=== PATIENT | female | born 1960 | race Caucasian/White ===

== ENCOUNTER → 2019-08-21 08:12 | Outpatient (CLI) | payer OTHER, SELFPAY | PROVIDERS: Family Provider Family Medicine; PCP Family Medicine; Referring Provider Family Medicine; Visit Provider Family Medicine | DX: I10 Essential (primary) hypertension (principal) | CPT/HCPCS: 36415 ==

== ENCOUNTER → 2020-01-06 10:33 | Outpatient (REF) | payer OTHER, MEDICAID, SELFPAY | LOC: HPRAD 10:33 | PROVIDERS: PCP Family Medicine; Referring Provider Chiropractor; Visit Provider Chiropractor | DX: M99.01 Segmental and somatic dysfunction of cervical region (principal) | CPT/HCPCS: 72040 ==

== ENCOUNTER → 2020-09-14 08:10 | Outpatient (CLI) | payer OTHER, MEDICAID, SELFPAY ==
[2020-09-14 10:46] LABS: ALB/GLOB Ratio 1.1 RATIO (0.9-2.4); AST(SGOT) 15 U/L (15-37); Alanine Aminotransfer ALT/SGPT 22 U/L (13-56); Albumin, Serum 3.7 g/dL (3.2-5.0); Alkaline Phosphatase 69 U/L (45-117); Anion Gap 7 (5-15); BUN 18 mg/dL (7-18); BUN/Creat Ratio 21.4 RATIO (10-20); Calcium,Total 9.2 mg/dL (8.5-10.1); Chloride 101 mmol/L (98-107); Cholesterol 191 mg/dL (200); Creatinine, Serum 0.84 mg/dL (0.55-1.02); EST Glomerular Filtration Rate 74 mL/min (>60); Est Glom Filt Rate - Afr Amer 89 mL/min (>60); Globulin 3.4 g/dL (2.2-4.2); Glucose 88 mg/dL (74-106); High Density Lipoprotein 59 mg/dL; Potassium 3.5 mmol/L (3.5-5.1); Protein, Total 7.1 g/dL (6.4-8.2); Sodium Level 139 mmol/L (136-145); Triglycerides 109 mg/dL; Very Low Density Lipoprotein 22 mg/dL (5-40)
== END ==
PROVIDERS: PCP Family Medicine; Referring Provider Family Medicine; Visit Provider Family Medicine
DX: I10 Essential (primary) hypertension (principal)
CPT/HCPCS: 36415; 80053; 80061

== ENCOUNTER → 2021-09-14 08:51 | Outpatient (CLI) | payer OTHER, MEDICAID, SELFPAY ==
--- NOTE | 2021-09-14 08:56 | CDU_ITS ---
Reason For Study: Transient vision loss Rt. Velocities/BP Lt. Velocities/BP Prox CCA 94.3/25.2 cm/sec. Prox CCA 102.3/28.6 cm/sec. Mid CCA 100.8/34.3 cm/sec. Mid CCA 94.9/29.8 cm/sec. Dist CCA 87.8/26.5 cm/sec. Dist CCA 90/27.4 cm/sec. Prox ICA 82.6/21.3 cm/sec. Prox ICA 103.5/33.5 cm/sec. Mid ICA 93/29.1 cm/sec. Mid ICA 83.9/38.4 cm/sec. Dist ICA 90.4/36.9 cm/sec. Dist ICA 93.7/37.2 cm/sec. Rt. ICA/CCA = 0.99. Lt. ICA/CCA = 1.09. Prox ECA 86.5/13.4 cm/sec. Prox ECA 110.1/24.3 cm/sec. Rt. Vert. 45.6/16.3 cm/sec. Lt. Vert. 54.4/18.8 cm/sec. Right Extracranial There is intimal thickening but no significant atherosclerotic plaque noted in the right common carotid artery. There is intimal thickening but no significant atherosclerotic plaque noted in the right internal carotid artery. There is no significant atherosclerotic plaque noted in the right external carotid artery. Antegrade flow is noted in the right vertebral artery. Left Extracranial There is intimal thickening but no significant atherosclerotic plaque noted in the left common carotid artery. There is intimal thickening but no significant atherosclerotic plaque noted in the left internal carotid artery. There is intimal thickening but no significant atherosclerotic plaque noted in the left external carotid artery. Antegrade flow is noted in the left vertebral artery. Procedure Carotid Duplex 36569. This is a Carotid Duplex examination using B-mode, color flow and specral Doppler. Exam performed in department. VL/Carotid Duplex Ultrasound Interpretation Summary No significant atherosclerotic plaque or stenosis noted in the internal carotid arteries bilaterally. Flow within the vertebral arteries is antegrade bilaterally. Ordering Physician: Sj Rocha Performed By: Judith Henry RVT
== END ==
PROVIDERS: Referring Provider Ophthalmology; Visit Provider Ophthalmology
DX: H53.123 Transient visual loss, bilateral (principal)
CPT/HCPCS: 93880

== ENCOUNTER 2021-11-13 08:58 | Outpatient (CLI) | payer OTHER, MEDICAID, SELFPAY ==
[2021-11-13 11:09] LABS: AST(SGOT) 24 U/L (15-37); Alanine Aminotransfer ALT/SGPT 45 U/L (13-56); Albumin, Serum 3.5 g/dL (3.2-5.0); Alkaline Phosphatase 66 U/L (45-117); Anion Gap 5 (5-15); BUN 16 mg/dL (7-18); BUN/Creat Ratio 22.6 RATIO (10-20); Calcium,Total 9.5 mg/dL (8.5-10.1); Chloride 104 mmol/L (98-107); Cholesterol 193 mg/dL (200); Creatinine, Serum 0.71 mg/dL (0.55-1.02); EST Glomerular Filtration Rate 89 mL/min (>60); Est Glom Filt Rate - Afr Amer 108 mL/min (>60); Globulin 3.5 g/dL (2.2-4.2); Glucose 89 mg/dL (74-106); High Density Lipoprotein 68 mg/dL; Potassium 3.8 mmol/L (3.5-5.1); Sodium Level 141 mmol/L (136-145); Triglycerides 113 mg/dL; Very Low Density Lipoprotein 23 mg/dL (5-40)
== END 2021-11-13 23:59 | disposition short-term general hospital (02) ==
LOC: MFPLAB 09:02
PROVIDERS: Family Medicine; Visit Provider Registered Nurse
DX: I10 Essential (primary) hypertension (principal)
CPT/HCPCS: 36415; 80053; 80061

== ENCOUNTER → 2022-11-16 | Outpatient (CLI) | payer BC, MEDICAID, SELFPAY ==
[2022-11-16 12:30] LABS: Microalbumin,Random Urine 22.7 mg/L (NO RANGE EST.); Microalbumin:Creatinine Ratio 8.9 mg/g CRE (<30 mg/g CRE)
[2022-11-16 12:36] LABS: AST(SGOT) 18 U/L (15-37); Alanine Aminotransfer ALT/SGPT 29 U/L (13-56); Anion Gap 8 (5-15); BUN 14 mg/dL (7-18); BUN/Creat Ratio 19.2 RATIO (10-20); Calcium,Total 9.3 mg/dL (8.5-10.1); Chloride 100 mmol/L (98-107); Cholesterol 198 mg/dL (200); Creatinine, Serum 0.73 mg/dL (0.55-1.02); EST Glomerular Filtration Rate 86 mL/min (>60); Est Glom Filt Rate - Afr Amer 105 mL/min (>60); Glucose 85 mg/dL (74-106); High Density Lipoprotein 65 mg/dL; Potassium 3.6 mmol/L (3.5-5.1); Sodium Level 138 mmol/L (136-145); Triglycerides 81 mg/dL; Very Low Density Lipoprotein 16 mg/dL (5-40)
== END | disposition home or self-care (01) ==
LOC: MFPLAB 08:15
PROVIDERS: Visit Provider Family Medicine
DX: I10 Essential (primary) hypertension (principal); E78.5 Hyperlipidemia, unspecified
CPT/HCPCS: 36415; 80048; 80061; 82043; 82570; 84450; 84460

== ENCOUNTER → 2023-10-10 | Outpatient (CLI) | payer BC, SELFPAY ==
--- NOTE | 2023-10-10 12:47 | RAD_ITS ---
STUDY: X-RAY - RIGHT KNEE REASON FOR EXAM: Female, 63 years old. Right knee pain. TECHNIQUE: 4 views of the right knee. COMPARISON: None. FINDINGS: Normal visualized distal femur. Normal visualized proximal tibia and fibula. Normal proximal tibiofibular articulation. There is no demonstrated fracture. Normal medial femorotibial compartment. Normal lateral femorotibial compartment. Normal patellofemoral articulation. There is a moderate volume joint effusion. The soft tissue structures are unremarkable. RAD/Knee 4 or More Views IMPRESSION: Moderate joint effusion. No demonstrated fracture. Electronically Signed: Sabino Hadley MD at 12:42 EST ,
== END | disposition home or self-care (01) ==
LOC: MTRAD 12:45
PROVIDERS: Referring Provider Family Medicine; Visit Provider Family Medicine
DX: M25.561 Pain in right knee (principal)
CPT/HCPCS: 73564

== ENCOUNTER 2023-11-29 08:28 | Outpatient (CLI) | payer BC, MEDICAID, SELFPAY ==
--- OUTSIDE RECORDS SUMMARY | 2023-11-29 08:52 | XMS RPT_ITS | CCD ---
Author Name Unknown Address [address] [place] [address] Organization [facility] Care Team Providers Care Nuclear Control Room Operator Name Role Phone PROVIDER, UNKNOWN Admitting Unavailable RICHARD RIVAS Attending Unavailable EDGAR SEWELL DO Primary Care Physician Edgar Rodas MD Primary Care Provider EDGAR RODAS Primary Care Unavailable MAI JURADO Referring Unavailable EDGAR RODAS Primary Care Unavailable MAI JURADO Referring Unavailable MAI JURADO Attending Unavailable EDGAR RODAS Primary Care Unavailable Edgar Rodas MD Primary Care Provider [phone] Medications Completed/Discontinued Medications Medication Drug Class(es) Dates Sig (Normalized) Sig (Original) hydroCHLOROthiazide 25 mg oral tablet (4 sources) Thiazide Diuretic Start: 0 take 1 tablet by mouth once daily hydroCHLOROthiazide (HYDRODIURIL, ESIDRIX) 25 mg tablet Take 25 mg by mouth once daily. 0 05/05/2020 Active Problems Active Problems Problem Classification Problem Date Documented Date Episodic/Chronic Immunizations and screening for infectious disease (6 sources) Patient encounter status; Translations: [Encounter for screening for human papillomavirus (HPV)] Episodic Other screening for suspected conditions (not mental disorders or infectious disease) (2 sources) Encounter for screening for osteoporosis; Translations: [Encounter for screening mammogram for malignant neoplasm of breast] Onset: 11-23-2022 Episodic Prolapse of female genital organs (3 sources) Midline cystocele; Translations: [Cystocele, midline] Onset: 11-28-2009 11-28-2009 Chronic Past or Other Problems Problem Classification Problem Date Documented Da te Episodic/Chronic Genitourinary symptoms and ill-defined conditions (3 sources) Urgent desire to urinate; Translations: [Urgency of urination] Onset: 11-28-2009 11-28-2009 Episodic Results Test Name Value Interpretation Reference Range Facil ity Vital Signs Date Time Vital Sign Value Performing Clinician Facility 10-08-2022 14:08-0500 Body height 172.1 cm Mai Jurado MD Work Phone: [facility] 10-08-2022 14:08-0500 Body weight 59.88 kg Mai Jurado MD Work Phone: [facility] 10-08-2022 14:08-0500 Diastolic blood pressure 78 mm[Hg] Mai Jurado MD Work Phone: [facility] 10-08-2022 14:08-0500 Systolic blood pressure 110 mm[Hg] Mai Jurado MD Work Phone: [facility] 03-05-2022 09:40-0400 Diastolic Blood Pressure NBP [address] JUNG WATSON MD [facility] 03-05-2022 09:40-0400 Heart rate 69 /min DR JUNG WATSON MD [facility] 03-05-2022 09:40-0400 Respiratory rate 14 /min DR JUNG WATSON MD [facility] 03-05-2022 09:40-0400 Systolic Blood Pressure NBP [address] JUNG WATSON MD [facility] 03-05-2022 09:35-0400 Diastolic Blood Pressure NBP [address] JUNG WATSON MD [facility] 03-05-2022 09:35-0400 Heart rate 71 /min DR JUNG WATSON MD [facility] 03-05-2022 09:35-0400 Respiratory rate 12 /min DR JUNG WATSON MD [facility] 03-05-2022 09:35-0400 Systolic Blood Pressure NBP [address] JUNG WATSON MD [facility] 03-05-2022 09:30-0400 Diastolic Blood Pressure NBP [address] JUNG WATSON MD [facility] 03-05-2022 09:30-0400 Heart rate 70 /min DR JUNG WATSON MD [facility] 03-05-2022 09:30-0400 Respiratory rate 18 /min DR JUNG WATSON MD [facility] 03-05-2022 09:30-0400 Systolic Blood Pressure NBP [address] JUNG WATSON MD [facility] 03-05-2022 09:22-0400 Body temperature 97.34 [degF] DR JUNG WATSON MD [facility] 03-05-2022 07:41-0400 Body height [address] JUNG WATSON MD [facility] 03-05-2022 07:41-0400 Body weight 61.[address] JUNG WATSON MD [facility] 03-05-2022 07:41-0400 Body weight 21.25 kg/m2 DR JUNG WATSON MD [facility] 03-05-2022 07:37-0400 Body temperature 97.7 [degF] DR JUNG WATSON MD [facility] 03-05-2022 07:37-0400 Heart rate 71 /min DR JUNG WATSON MD [facility] Encounters Encounter Date Encounter Type Care Provider Facility Start: 08-22-2023 ambulatory Mai hernández MD Work Phone: OB/Gynecology Procedures Date Procedure Procedure Detail Performing Clinician Start: 11-23-2022 MARCO ANTONIO SCREENING W RACHELLE Re hanny Jurado MD Work Phone: Start: 08-14-2021 Mammography Mai fermin MD Work Phone: Start: 12-03-2015 Ct cervical spine w/ o contrast material UNKNOWN PROVIDER Start: 12-03-2015 DISCHARGE PATIENT UNKNO WN PROVIDER Start: 07-31-2012 Colonoscopy Mai fermin MD Work Phone: Plan of Treatment Date Care Activity Detail Author Start: 01-12-2029 Urine microalbumin profile [facility] Start: 10-08-2027 HPV Testing HPV Testing [facility] Start: 10-08-2027 Pap Testing Pap Testing [facility] Start: 11-23-2023 Mammography Mammogram Screening [facility] Start: 07-12-2023 Covid-19 Vaccine () Covid-19 Vaccine () [facility] Start: 07-12-2023 Influenza vaccination Influenza Vaccine (#1) [facility] Start: 01-10-2023 HPV TESTING HPV TESTING [facility] Start: 01-10-2023 PAP TESTING PAP TESTING [facility] Start: 11-11-2022 Depression Assessment Depression Assessment [facility] Start: 08-14-2022 Mammography MAMMOGRAM [facility] Start: 07-31-2022 Colonoscopy COLONOSCOPY [facility] Start: 07-31-2022 COLORECTAL CANCER SCREENING COLORECTAL CANCER SCREENING [facility] Start: 07-12-2022 Influenza vaccination INFLUENZA (#1) [facility] Start: 01-15-2022 COVID-19 VACCINE (4 - Booster for Pfizer series) COVID-19 VACCINE (4 - Booster for Pfizer series) [facility] Start: 11-11-2021 DEPRESSION ASSESSMENT DEPRESSION ASSESSMENT [facility] Start: 2021 RSV Vaccine (1 - 1-dose 60+ series) RSV Vaccine (1 - 1-dose 60+ series) [facility] Start: 2011 SHINGRIX VACCINE (1 of 2) SHINGRIX VACCINE (1 of 2) [facility] Start: 2006 COLOGUARD (FIT-DNA) COLOGUARD (FIT-DNA) [facility] Start: [address] COLONOGRAPHY [facility] Start: 2006 DIABETES SCREEN DIABETES SCREEN [facility] Start: 2006 Diabetes Screening Diabetes Screening [facility] Start: 2006 FECAL OCCULT BLOOD FECAL OCCULT BLOOD [facility] Start: 2006 Lipid 1996 panel - Serum or Plasma Lipid Screening [facility] Start: 2006 LIPID SCREEN LIPID SCREEN [facility] Start: 2006 SIGMOIDOSCOPY SIGMOIDOSCOPY [facility] Start: 1979 HEPATITIS C SCREENING HEPATITIS C SCREENING [facility] Start: 1979 HIV SCREENING HIV SCREENING [facility] End: 11-07-2023 Dxa bone density study 1/> sites axial skel DXA-AXIAL SKELETON Radiology Routine Encounter for screening for osteoporosis 1 Occurrences starting 10/08/2022 until 11/07/2023 [facility] Work Phone: Immunizations Immunization Date Immunization Notes Care Provider Fa kim 01-12-2019 tetanus toxoid, redu deepak diphtheria toxoid, and acellular pertussis vaccine, adsorbed Mai Jurado MD Work Phone: [facility] Payers Date Payer Category Payer Unknown [id number] 2018 Unknown [id number] 2018 Unknown [id number] 2015 Medicaid [id number] 1960 Unknown [id number] Social History Date Type Detail Facility Tobacco smoking status Never smoker [facility] Sex Assigned At Female [facility] Start: 10-08-2022 Tobacco smoking stat [facility] Never smoked tobacco [facility] Start: 10-08-2022 Tobacco use and exposure Smokeless tobacco non-user [facility] Start: 10-08-2022 Alcohol intake Current non-dr galley worker of alcohol (finding) [facility] Start: 06-24-2020 History SDOH Financial 5 [facility] Start: 06-24-2020 History SDOH Food Worry 1 [facility] Start: 06-24-2020 History SDOH Transpo rt Med 2 [facility] Start: 1960 Sex Assigned At Not on file [facility] Start: 09-28-2022 End: 10-08-2022 Exposure to SARS-CoV-2 (event) Not sure [facility] Start: 10-08-2022 End: 11-24-2022 History of Social function [facility] Start: 10-08-2022 End: 11-24-2022 Tobacco use panel [facility] How hard is it for y ou to pay for the very basics like food, housing, medical care, and heating Not hard at all [facility] (I/We) worried chad er (my/our) food would run out before (I/we) got money to buy more. Never true [facility] Functional Status Date Assessment Result Facility 03-05-2022 [facility] Functional Status Olga [facility] Mental Status Date Assessment Result Facility 03-05-2022 Mental Status Olga [facility] 03-05-2022 Mental Status Olga Cantrell Clinical Notes 12-12-2011 to 08-23-2023 Telephone Encounter - Mai Jurado MD - 08/23/2023 10:58 AM EDTTelephone Encounter - Devora Eng RN - 08/23/2023 8:12 AM Farzaneh Beltran RT(R) - 11/23/2022 9:10 AM EST Note Date & Type Note Facility 08-23-2023 Miscellaneous Notes Formattin g of this note might be different from the original. done. Mai Jurado MD Mammogram orders pending. Annual is scheduled with RR 12/25/23 Gracia Eng RN documented in this encounter [facility] 12-26-2022 Note HNO ID: [id number] Author: RT Leandro(R) Service: ? Author Type: Technologist Type: Progress Notes Filed: 12/26/2022 8:38 AM Note Text: Radiology Service Progress Note PATIENT NAME: Jacqueline Lyon DATE OF SERVICE: December 26, 2022 TIME: 8:29 AM PATIENT IDENTITY VERIFICATION COMPLETED USING TWO (2) IDENTIFIERS: Name and Date of confirmed by patient verbally. FALL SCREENING: Has the patient had 2 falls in the last year or 1 fall with injury or currently using an Ambulatory Assistive Device (Walker, Cane, Wheelchair, Crutches, etc.)? No PATIENT GENDER DATA: Female. status: : No status: NO. PATIENT RELEVANT IMPLANT DATA REVIEWED: Not Applicable RADIOLOGY DEPARTMENT: Bone Density PERIPHERAL IV DATA: Not applicable SIGNED BY: RT Leandro(R) December 26, 2022 8:29 AM [facility] 11-23-2022 Note HNO ID: [id number] Author: Farzaneh Hendricks, RT(R) Service: ? Author Type: Technologist Type: Progress Notes Filed: 11/23/2022 9:37 AM Note Text: Radiology Service Progress Note PATIENT NAME: Jacqueline Lyon DATE OF SERVICE: November 23, 2022 TIME: 9:36 AM PATIENT IDENTITY VERIFICATION COMPLETED USING TWO (2) IDENTIFIERS: Name and Date of confirmed by patient verbally. FALL SCREENING: Has the patient had 2 falls in the last year or 1 fall with injury or currently using an Ambulatory Assistive Device (Walker, Cane, Wheelchair, Crutches, etc.)? No PATIENT GENDER DATA: Female. status: : No status: NO. PATIENT RELEVANT IMPLANT DATA REVIEWED: Not Applicable RADIOLOGY DEPARTMENT: Mammography PERIPHERAL IV DATA: Not applicable SIGNED BY: RT Brooke(R) November 23, 2022 9:36 AM [facility] 11-23-2022 History of Presen t illness Narrative Radiology Service Progress Note PATIENT NAME: Jacqueline Lyon DATE OF SERVICE: November 23, 2022 TIME: 9:36 AM PATIENT IDENTITY VERIFICATION COMPLETED USING TWO (2) IDENTIFIERS: Name and Date of confirmed by patient verbally. FALL SCREENING: Has the patient had 2 falls in the last year or 1 fall with injury or currently using an Ambulatory Assistive Device (Walker, Cane, Wheelchair, Crutches, etc.)? No PATIENT GENDER DATA: Female. status: : No status: NO. PATIENT RELEVANT IMPLANT DATA REVIEWED: Not Applicable RADIOLOGY DEPARTMENT: Mammography PERIPHERAL IV DATA: Not applicable SIGNED BY: RT Brooke(R) November 23, 2022 9:36 AM documented in this encounter [facility] 10-08-2022 Note HNO ID: [id number] Author: Mai Jurado MD Service: ? Author Type: Physician Type: Progress Notes Filed: 10/08/2022 2:28 PM Note Text: Jacqueline is a 62 year old who presents for an annual gynecologic exam without complaints. Postmenopausal: yes HRT use: No. Last Pap: 01/22/2018 normal HPV: 01/15/2018 negative History of abnormal pap: No Last mammogram: 2019 normal History of abnormal mammogram: No Sexually active: Yes OB History T3 L3 SAB0 IAB0 Ectopic0 Multiple0 Live Births0 Metal Tile Lather History LMP: 07/26/2015, Postmenopausal Age at Menarche: Age at First : Age at Menopause: Metal Tile Lather History Comments: Sexual Activity: Yes; Male Contraception: Vasectomy PAST MEDICAL HISTORY Diagnosis Date Irregular menstrual cycle 2008- Irregular periods PMH - PAST MEDICAL HISTORY OF HEARING LOSS PAST SURGICAL HISTORY Procedure Laterality Date DELIVERY ONLY , low cervical PAST SURGICAL HISTORY OF STAPES BONE RT. EAR FAMILY HISTORY Problem Relation Age of Onset other (Other) Mother CELIAC DISEASE Heart Mother Thyroid Mother Heart Father Heart Brother Diabetes Maternal Grandmother Cancer Paternal Grandfather colon Breast Cancer Other COUSIN 1st SOCIAL HISTORY Social History Tobacco Use Smoking status: Never Smokeless tobacco: Never Vaping Use Vaping Use: Never used Substance Use Topics Alcohol use: No Drug use: No REVIEW OF SYSTEMS Abdomen: No abdominal pain, nausea, vomiting, diarrhea, or constipation. No bloating, early satiety, indigestion, or increased flatulence. Bladder: some urgency, mild CHANI Breast: No breast lumps, nipple d/c, overlying skin changes, redness or skin retraction Allergies and current medication updated:Yes EXAM: BP 110/78 Ht 5' 7.75 (1.72m) Wt 132 lb (59.9kg) LMP 07/26/2015 BMI 20.22 kg/(m2). GENERAL: pleasant, female in no apparent distress HEENT: Normocephalic, atraumatic, mucus membranes moist, and no lesions NECK: Supple, full range of motion, no adenopathy, and thyroid normal DERMATOLOGY: Normal, without lesions, non-icteric, and non-hirsute BREAST: soft, non-tender, symmetric, no dominant mass, normal nipple-areolar complex, no lymphadenopathy, and no nipple discharge CHEST: Normal inspiratory effort ABDOMEN: soft, non-tender, and no masses PELVIC: external genitalia normal, normal Bartholin's glands, urethra, Cashmere's glands, no vulvar lesions, no cervical lesions, physiologic discharge present, normal appearing perineal body and perianal region, cystocele 1st degree BIMANUAL: uterus normal size, shape and consistency, no adnexal masses, and non-tender RECTOVAGINAL: deferred. NEURO: alert and oriented x3,exam grossly non-focal EXTREMITIES: normal ASSESSMENT/PLAN: 1) Health maintenance: Pap done with HPV. Mammogram ordered BMD ordered other health screens up to date 2) Follow up one year or sooner as needed Mai Jurado MD [facility] 10-08-2022 History of Presen t illness Narrative Jacqueline is a 62 year old who presents for an annual gynecologic exam without complaints. Postmenopausal: yes HRT use: No. Last Pap: 01/22/2018 normal HPV: 01/15/2018 negative History of abnormal pap: No Last mammogram: 2019 normal History of abnormal mammogram: No Sexually active: Yes OB History T3 L3 SAB0 IAB0 Ectopic0 Multiple0 Live Births0 Metal Tile Lather History LMP: 07/26/2015, Postmenopausal Age at Menarche: Age at First : Age at Menopause: Metal Tile Lather History Comments: Sexual Activity: Yes; Male Contraception: Vasectomy PAST MEDICAL HISTORY Diagnosis Date Irregular menstrual cycle 2008- Irregular periods PMH - PAST MEDICAL HISTORY OF HEARING LOSS PAST SURGICAL HISTORY Procedure Laterality Date DELIVERY ONLY , low cervical PAST SURGICAL HISTORY OF STAPES BONE RT. EAR FAMILY HISTORY Problem Relation Age of Onset other (Other) Mother CELIAC DISEASE Heart Mother Thyroid Mother Heart Father Heart Brother Diabetes Maternal Grandmother Cancer Paternal Grandfather colon Breast Cancer Other COUSIN 1st SOCIAL HISTORY Social History Tobacco Use Smoking status: Never Smokeless tobacco: Never Vaping Use Vaping Use: Never used Substance Use Topics Alcohol use: No Drug use: No REVIEW OF SYSTEMS Abdomen: No abdominal pain, nausea, vomiting, diarrhea, or constipation. No bloating, early satiety, indigestion, or increased flatulence. Bladder: some urgency, mild CHANI Breast: No breast lumps, nipple d/c, overlying skin changes, redness or skin retraction Allergies and current medication updated:Yes EXAM: BP 110/78 Ht 5' 7.75 (1.72m) Wt 132 lb (59.9kg) LMP 07/26/2015 BMI 20.22 kg/(m^2). GENERAL: pleasant, female in no apparent distress HEENT: Normocephalic, atraumatic, mucus membranes moist, and no lesions NECK: Supple, full range of motion, no adenopathy, and thyroid normal DERMATOLOGY: Normal, without lesions, non-icteric, and non-hirsute BREAST: soft, non-tender, symmetric, no dominant mass, normal nipple-areolar complex, no lymphadenopathy, and no nipple discharge CHEST: Normal inspiratory effort ABDOMEN: soft, non-tender, and no masses PELVIC: external genitalia normal, normal Bartholin's glands, urethra, Cashmere's glands, no vulvar lesions, no cervical lesions, physiologic discharge present, normal appearing perineal body and perianal region, cystocele 1st degree BIMANUAL: uterus normal size, shape and consistency, no adnexal masses, and non-tender RECTOVAGINAL: deferred. NEURO: alert and oriented x3,exam grossly non-focal EXTREMITIES: normal ASSESSMENT/PLAN: 1) Health maintenance: Pap done with HPV. Mammogram ordered BMD ordered other health screens up to date 2) Follow up one year or sooner as needed Mai Jurado MD documented in this encounter [facility] 03-05-2022 Hospital Discharg e instructions Patient Education 03/05/2022 09:27:46 Colonoscopy, Adult, Care After Colonoscopy, Adult, Care After This sheet gives you information about how to care for yourself after your procedure. Your health care provider may also give you more specific instructions. If you have problems or questions, contact your health care provider. What can I expect after the procedure? After the procedure, it is common to have: A small amount of blood in your stool for 24 hours after the procedure. Some gas. Mild abdominal cramping or bloating. Follow these instructions at home: General instructions For the first 24 hours after the procedure: ?Do not drive or use machinery. ?Do not sign important documents. ?Do not drink alcohol. ?Do your regular daily activities at a slower pace than normal. ?Eat soft, cguz-qk-bjgtli foods. Take bwbi-qoe-mqfqike or prescription medicines only as told by your health care provider. Relieving cramping and bloating Try walking around when you have cramps or feel bloated. Apply heat to your abdomen as told by your health care provider. Use a heat source that your health care provider recommends, such as a moist heat pack or a heating pad. ?Place a towel between your skin and the heat source. ?Leave the heat on for 20 30 minutes. ?Remove the heat if your skin turns bright red. This is especially important if you are unable to feel pain, heat, or cold. You may have a greater risk of getting burned. Eating and drinking Drink enough fluid to keep your urine pale yellow. Resume your normal diet as instructed by your health care provider. Avoid heavy or fried foods that are hard to digest. Avoid drinking alcohol for as long as instructed by your health care provider. Contact a health care provider if: You have blood in your stool 2 3 days after the procedure. Get help right away if: You have more than a small spotting of blood in your stool. You pass large blood clots in your stool. Your abdomen is swollen. You have nausea or vomiting. You have a fever. You have increasing abdominal pain that is not relieved with medicine. Summary After the procedure, it is common to have a small amount of blood in your stool. You may also have mild abdominal cramping and bloating. For the first 24 hours after the procedure, do not drive or use machinery, sign important documents, or drink alcohol. Contact your health care provider if you have a lot of blood in your stool, nausea or vomiting, a fever, or increased abdominal pain. This information is not intended to replace advice given to you by your health care provider. Make sure you discuss any questions you have with your health care provider. Document Released: 06/11/2005 Document Revised: 08/20/2018 Document Reviewed: 01/08/2017 Software 2000 Patient Education 2020 [employer]. 03/05/2022 09:27:42 Monitored Anesthesia Care, Care After Monitored Anesthesia Care, Care After These instructions provide you with information about caring for yourself after your procedure. Your health care provider may also give you more specific instructions. Your treatment has been planned according to current medical practices, but problems sometimes occur. Call your health care provider if you have any problems or questions after your procedure. What can I expect after the procedure? After your procedure, you may: Feel sleepy for several hours. Feel clumsy and have poor balance for several hours. Feel forgetful about what happened after the procedure. Have poor judgment for several hours. Feel nauseous or vomit. Have a sore throat if you had a breathing tube during the procedure. Follow these instructions at home: For at least 24 hours after the procedure: Have a responsible adult stay with you. It is important to have someone help care for you until you are awake and alert. Rest as needed. Do not: ?Participate in activities in which you could fall or become injured. ?Drive. ?Use heavy machinery. ?Drink alcohol. ?Take sleeping pills or medicines that cause drowsiness. ?Make important decisions or sign legal documents. ?Take care of children on your own. Eating and drinking Follow the diet that is recommended by your health care provider. If you vomit, drink water, juice, or soup when you can drink without vomiting. Make sure you have little or no nausea before eating solid foods. General instructions Take bqui-tly-jotnahn and prescription medicines only as told by your health care provider. If you have sleep apnea, surgery and certain medicines can increase your risk for breathing problems. Follow instructions from your health care provider about wearing your sleep device: ?Anytime you are sleeping, including during daytime naps. ?While taking prescription pain medicines, sleeping medicines, or medicines that make you drowsy. If you smoke, do not smoke without supervision. Keep all follow-up visits as told by your health care provider. This is important. Contact a health care provider if: You keep feeling nauseous or you keep vomiting. You feel light-headed. You develop a rash. You have a fever. Get help right away if: You have trouble breathing. Summary For several hours after your procedure, you may feel sleepy and have poor judgment. Have a responsible adult stay with you for at least 24 hours or until you are awake and alert. This information is not intended to replace advice given to you by your health care provider. Make sure you discuss any questions you have with your health care provider. Document Released: 02/17/2017 Document Revised: 01/26/2019 Document Reviewed: 02/17/2017 Software 2000 Patient Education 2020 [employer] Follow Up Care 01/19/2022 12:02:30 With:JUNG WATSON Address: [address] [place] [address]- [phone] Business (1) When: Unknown Comments:NEXT COLONOSCOPY: YEARS [facility] documented as of this encounter (statuses as of 10/08/2022) [facility]02-[facility]-2012 History of Past illness Narrative* Problem Noted Date Diagnosed Date Resolved Date Irregular menstrual cycle 12/12/2011 Excessive or frequent menstruation 12/12/2011 11/03/2015 Urge incontinence 11/28/2009 12/06/2010 Mucous polyp of cervix 11/28/200912/06 Uterovaginal prolapse, incomplete 11/28/2009 11/03/2015 documented as of this encounter (statuses as of 08/23/2023) [facility]2012 History of Past illness Narrative* Problem Noted Date Diagnosed Date Resolved Date Irregular menstrual cycle 12/12/2011 Excessive or frequent menstruation 12/12/2011 11/03/2015 Urge incontinence 11/28/2009 12/06/2010 Mucous polyp of cervix 11/28/200912/06 Uterovaginal prolapse, incomplete 11/28/2009 11/03/2015 documented as of this encounter (statuses as of 09/15/2023) [facility] No data available for this section [facility] Evaluation note* Diagnosis Encounter for screening for osteoporosis- Primary Special screening for osteoporosis Encounter for gynecological examination (general) (routine) without abnormal findings Encounter for screening for human papillomavirus (HPV) Special screening examination for human papillomavirus (HPV) Pap smear for cervical cancer screening Screening for malignant neoplasm of the cervix Encounter for screening mammogram for breast cancer [facility] Diagnosis Encounter for screening mammogram for malignant neoplasm of breast- Primary Other screening mammogram [facility] Diagnosis Encounter for gynecological examination (general) (routine) without abnormal findings Encounter for screening mammogram for breast cancer [facility] No data available for this section [facility] Reason for referral (narrative)* Diagnostic Procedure Only (Routine) - Authorized Specialty Diagnoses / Procedures Referred By Contaren t Referred To Contact [facility] Diagnoses Encounter for gynecological examination (general) (routine) without abnormal findings Encounter for screening mammogram for breast cancer Procedures MARCO ANTONIO SCREENING W RACHELLE SCREENING DIGITAL BREAST TOMOSYNTHESIS BI SCREENING MAMMOGRAPHY BI 2-VIEW BREAST INC Mai Loo MD [address] [place] [address] [facility] [address] [place] [address] Referral ID Status Reason Start Date Expiration Date Visits Requested Visits Authorized [id number] Authorized Auto-Generat ed Referral 2 11/07/2023 1 1 [facility] for referral (narrative)* Diagnostic Procedure Only (Routine) - Authorized Specialty Diagnoses / Procedures Referred By Contac t Referred To Contact [facility] Diagnoses Encounter for screening mammogram for malignant neoplasm of breast Procedures MARCO ANTONIO SCREENING W RACHELLE SCREENING DIGITAL BREAST TOMOSYNTHESIS BI SCREENING MAMMOGRAPHY BI 2-VIEW BREAST INC Mai Loo MD [address] [place] [address] [facility] [address] [place] [address] Referral ID Status Reason Start Date Expiration Date Visits Requested Visits Authorized [id number] Authorized Auto-Generat ed Referral 3 09/21/2024 1 1 [facility] for referral (narrative)* Diagnostic Procedure Only (Routine) - Closed Specialty Diagnoses / Procedures Referred By Contac t Referred To Contact [facility] Diagnoses Encounter for gynecological examination (general) (routine) without abnormal findings Encounter for screening mammogram for breast cancer Procedures MARCO ANTONIO SCREENING W RACHELLE SCREENING DIGITAL BREAST TOMOSYNTHESIS BI SCREENING MAMMOGRAPHY BI 2-VIEW BREAST INC Mai Loo MD [address] [place] [address] [facility] [address] [place] [address] Referral ID Status Reason Start Date Expiration Date V isits Requested Visits Authorized [id number] Closed Auto-Generate d Referral 11/23/2022 11/10/2023 1 1 [facility] N[facility]* Diagnostic Procedure Only (Routine) - Closed Specialty Diagnoses / Procedures Referred By Contaren t Referred To Contact [facility] Diagnoses Encounter for gynecological examination (general) (routine) without abnormal findings Encounter for screening mammogram for breast cancer Procedures MARCO ANTONIO SCREENING W RACHELLE SCREENING DIGITAL BREAST TOMOSYNTHESIS BI SCREENING MAMMOGRAPHY BI 2-VIEW BREAST INC Mai Loo MD [address] [place] [address] [facility] [address] [place] [address] Referral ID Status Reason Start Date Expiration Date V isits Requested Visits Authorized [id number] Closed Auto-Generate d Referral 11/23/2022 11/10/2023 1 1 [facility] Summary Purpose Family History No Family History Records FoundNo Family History Records FoundNo Family History Records Found Advance Directives No Advanced Directives Records FoundNo Advanced Directives Records FoundNo Advanced Directives Records Found Additional Source Comments INFORMATION SOURCE (unrecogn ized section and content) DATE CREATED AUTHOR AUTHOR'S ORGANIZ ATION 12/14/2020 [facility] Ce luke Garcia DATE CREATED AUTHOR AUTHOR'S ORGANIZ ATION 01/02/2023 [facility] Care Team (unrecognized sect ion and content) 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 Specialty Start Date End Date Edgar Rodas MD [address] [place] [address] PCP - General 09/04/04 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 Specialty Start Date End Date Edgar Rodas MD [address] [place] [address] PCP - General 09/04/04 Source Comments (unrecognize d section and content) In the event this informatio n is protected by the Federal Confidentiality of Alcohol and Drug Abuse Patient Records regulations: The Federal rules restrict any use of the information to criminally investigate or prosecute any alcohol or drug abuse patient.[facility] the event this information is protected by the Federal Confidentiality of Alcohol and Drug Abuse Patient Records regulations: The Federal rules restrict any use of the information to criminally investigate or prosecute any alcohol or drug abuse patient.[facility] the event this information is protected by the Federal Confidentiality of Alcohol and Drug Abuse Patient Records regulations: The Federal rules restrict any use of the information to criminally investigate or prosecute any alcohol or drug abuse patient.[facility] Reason for Visit (unrecogniz ed section and content) FOR RECORDS PERTAINING TO PATIENTS WHO ARE OR HAVE BEEN ENROLLED IN A CHEMICAL DEPENDENCY/SUBSTANCEABUSE PROGRAM, SOME INFORMATION MAY BE OMITTED. This clinical summary was aggregated from multiple sources. Caution should be exercised in using it in the provision of clinical care. This summary normalizes information from multiple sources, and as a consequence, information in this document may materially change the coding, format and clinical context of patient data. In addition, data may be omitted in some cases. CLINICAL DECISIONS SHOULD BE BASED ON THE PRIMARY CLINICAL RECORDS. [facility] [employer] [facility]. provides no warranty or guarantee of the accuracy or completeness of information in this document.
[2023-11-29 10:07] LABS: Absolute Lymphocyte Count 2.34 X10^3/uL (0.83-4.51); Absolute Neutrophil Count 2.1 X10^3/uL (2.0-7.7); Basophil# 0.08 X10^3/uL; Basophil% 1.5 % (0-1); Eosinophil# 0.39 X10^3/uL; Eosinophils% 7.3 % (0-5); Hematocrit 39.2 % (37-47); Hemoglobin 13.7 g/dL (12.0-15.0); Lymphocyte # 2.34 X10^3/ul (0.83-4.51); Lymphocyte % 43.8 % (19-41); Mean Corp Hgb Conc 34.9 g/dL (32-36); Mean Corpuscular Hgb 32.2 pg (27.0-32.0); Mean Platelet Vol. 9.9 fl (6.2-12.0); Monocyte# 0.46 X10^3/uL; Monocyte% 8.6 % (0-10); NRBC Flagged by Analyzer 0 % (0-5); Neutrophil # 2.07 X10^3/uL (2.7-7.7); Neutrophil % 38.8 % (47-70); Platelet Count 310 K/mm3 (150-450); RBC Distribution Width CV 12.5 % (11.6-14.6); Red Blood Count 4.26 M/mm3 (4.2-5.4); White Blood Count 5.3 K/mm3 (4.4-11.0)
[2023-11-29 10:40] LABS: Vitamin B12 869 pg/mL (211-911)
[2023-11-29 10:56] LABS: ALB/GLOB Ratio 1.1 RATIO (0.9-2.4); AST(SGOT) 17 U/L (15-37); Alanine Aminotransfer ALT/SGPT 24 U/L (13-56); Albumin, Serum 3.7 g/dL (3.2-5.0); Alkaline Phosphatase 73 U/L (45-117); Anion Gap 3 (5-15); BUN 11 mg/dL (7-18); BUN/Creat Ratio 13.9 RATIO (10-20); CRP < 2.90 mg/L (0.0-3.0); Calcium,Total 9.7 mg/dL (8.5-10.1); Chloride 103 mmol/L (98-107); Cholesterol 206 mg/dL (200); Creatinine, Serum 0.79 mg/dL (0.55-1.02); EST Glomerular Filtration Rate 78 mL/min (>60); Est Glom Filt Rate - Afr Amer 94 mL/min (>60); Ferritin 63 ng/mL (8-252); Globulin 3.3 g/dL (2.2-4.2); Glucose 92 mg/dL (74-106); High Density Lipoprotein 66 mg/dL; Potassium 3.5 mmol/L (3.5-5.1); Sodium Level 138 mmol/L (136-145); Triglycerides 114 mg/dL; Very Low Density Lipoprotein 23 mg/dL (5-40)
== END 2023-11-29 23:59 | disposition home or self-care (01) ==
LOC: MFPLAB 08:31
PROVIDERS: PCP Family Medicine; Visit Provider Family Medicine
DX: L29.9 Pruritus, unspecified (principal); Z13.220 Encounter for screening for lipoid disorders
CPT/HCPCS: 36415; 80053; 80061; 82607; 82728; 84443; 85025; 86140

== ENCOUNTER 2023-11-29 09:00 | Outpatient (RCR) | payer BC, MEDICAID, SELFPAY ==
--- NOTE | 2023-10-16 09:48 | HP.PTEVAL ---
Patient's Visit Information Visit Information Visit Information: RIA SAUCEDO is a 63 year old F referred to Physical Therapy by Rain Nguyen DO with a diagnosis of RIGHT KNEE PAIN. Date of Evaluation: 10/16/23 Physical Therapist: Adonay Solis, PT, Cert MDT, OCS Visit Plan Frequency: 2x /Week Duration: 4 Weeks Plan: PT INTERVETIONS FLEXABLITY ,PRE'S QUADS/HAMS/HIP ,LOAD MANAGEMENT , BIKE AND FUNCTION STRENGTHENING Subjective Subjective: This 63 y/o female presents to physical therapy right knee pain. Patient has right knee pain ~ 8weeks. No etiology of pain. Patient global in front. Patient walks and hikes . Seen Dr last week showed OA x-rays . Patient has no medication. Patient initially was unable to squat, kneeling affecting function and standing and walking. Patient overtime was getting better. Patient elevation from chair. Pain is described as sharp . Patient sleeping okay. Patient hiker once week . Patient walks 2 miles /day. Patient goals to have no pain with hiking. Patient pain affects QOL and function and hiker. SOCIAL: VOCATION: [employer] Pain Right Knee: Pain Intensity (Out of 10): 1 Pain Intensity Range: 10 Objective Objective: POSTURE: WFL GAIT: reciprocal pattern PALAPTION: unremarkable AROM: 0-140 degrees supine flexion EDEMA: absent MMT: ( peak force) quads 41.2 ,hamstrings 23.4 ,hip flexion 32.2,hip abduction 21.2 STAIRS: alternating Special Tests R Knee Heavenly - Meniscus: Negative R Knee Anterior Drawer - ACL: Negative R Knee Valgus - MCL: Negative R Knee Varus - LCL: Negative R Knee Patellar Apprehension - PFS: Negative R Knee Patellar Grind - PFS: Negative Balance/Special Test Scores Lower Extremity Functional Score: 42 Goals Goal 1:: Patient to be I with HEP for knee Goal Time Frame: 4-6 Weeks Goal 2:: Patient to demonstrate 75% improvement with decrease pain and improved function Goal Time Frame: 4-6 Weeks Goal 3:: Patient to improve peak force hip/quads/hams by 10 # to improve function and gait Goal Time Frame: 4-6 Weeks Goal 4:: Patient to improve LFES score by 10 points to improve QOL Goal Time Frame: 4-6 Weeks Rehabilitation Potential Physical Therapy Diagnosis: Patient has right knee pain with edema initially and pain squatting/kneeling affects hiking and walking along with hip weakenss thus benefit from skilled PT Rehabilitation Potential: Good Anticipated Interventions Patient/Client Instruction: Educate patient on: Condition and Plan of Care For the Purpose of:: To decrease pain, To increase ROM, To improve muscle performance and motor function, To increase tolerance to activity/condition/position, To improve ability of physical actions for home/community/work/leisure, To improve health of tissue, To decrease soft tissue restriction, To increase flexibility/ROM, To improve endurance, To improve balance, To reduce risk of recurrence and To improve tolerance to ADL's Therapeutic Exercise to Include: Strength training, Endurance training, Balance training, Flexibilty training and Active ROM Comment: QUADS/HAMS/HIP For the Purpose of:: To decrease pain, To increase ROM, To improve muscle performance and motor function, To improve ability to perform ADL's, To increase tolerance to activity/condition/position, To improve ability of physical actions for home/community/work/leisure, To improve gait and locomotor functions, To improve health of tissue, To decrease soft tissue restriction, To increase flexibility/ROM, To improve balance, To reduce risk of recurrence and To improve tolerance to ADL's TENS: Yes IF ES: Yes Cryotherapy (ice pack, ice massage): Yes Thermo therapy (hot pack): Yes Ultrasound (thermal/non thermal): Yes For the Purpose of:: To decrease pain, To decrease swelling/inflammation, To improve nutrient delivery to tissue, To increase oxygenation perfusion, To improve health of tissue and To decrease soft tissue restriction Text: Thank you for the opportunity to evaluate your patient. For Medicare and Medicare HMO plans, please review the plan of care and approve it. It will need to be FAXED BACK to us at [phone] for Medicare purposes. For Medicare only, by signing this I certify the plan of care. Please let me know if there are questions or concerns regarding this plan of care. Physician Signature: Date:
--- NOTE | 2024-02-24 16:33 | HP.PT.NRP ---
Patient Information Patient Information: RIA SAUCEDO was seen in my office for initial evaluation on 10/16/23. The following Plan of Care was established for this patient: POC Established Initial Frequency: 2x /Week Initial Duration: 4 Weeks Anticipated Interventions Patient/Client Instruction: Educate patient on: Condition and Plan of Care For the Purpose of:: To decrease pain, To increase ROM, To improve muscle performance and motor function, To increase tolerance to activity/condition/position, To improve ability of physical actions for home/community/work/leisure, To improve health of tissue, To decrease soft tissue restriction, To increase flexibility/ROM, To improve endurance, To improve balance, To reduce risk of recurrence and To improve tolerance to ADL's Therapeutic Exercise to Include: Strength training, Endurance training, Balance training, Flexibilty training and Active ROM For the Purpose of:: To decrease pain, To increase ROM, To improve muscle performance and motor function, To improve ability to perform ADL's, To increase tolerance to activity/condition/position, To improve ability of physical actions for home/community/work/leisure, To improve gait and locomotor functions, To improve health of tissue, To decrease soft tissue restriction, To increase flexibility/ROM, To improve balance, To reduce risk of recurrence and To improve tolerance to ADL's TENS: Yes IF ES: Yes Cryotherapy (ice pack, ice massage): Yes Thermo therapy (hot pack): Yes Ultrasound (thermal/non thermal): Yes For the Purpose of:: To decrease pain, To decrease swelling/inflammation, To improve nutrient delivery to tissue, To increase oxygenation perfusion, To improve health of tissue and To decrease soft tissue restriction Last Seen Last Seen: This patient was last seen in our office . Pertinent comments regarding their Physical therapy will appear below: Patient was seen for PT to progress to a gym program and HEP .Doing well thus d/c At this point I will be discontinuing this patient from physical therapy. I would be happy to see this patient again in the future if found appropriate by the physician. Thank you! Adonay Solis, PT, Cert MDT, OCS Balance/Gait/Functional tests Balance/Special Test Scores Lower Extremity Functional Score: 42
== END 2023-11-29 19:00 | disposition home or self-care (01) ==
LOC: PT 09:00
PROVIDERS: Visit Provider Family Medicine
DX: M25.561 Pain in right knee (principal)
CPT/HCPCS: 97110; 97162

== ENCOUNTER 2024-09-26 06:34 | Emergency (ER) | payer BC, SELFPAY ==
[2024-09-26 06:36] VITALS: PULSE 86; RESP 18; TEMP 36.4; O2SAT 98; BMI 21.0
[2024-09-26 06:38] VITALS: BP 131/90; PULSE 90; RESP 18; TEMP 36.4; O2SAT 100
--- NOTE | 2024-09-26 06:51 | CT_ITS ---
STUDY: CT ABDOMEN AND PELVIS WITH CONTRAST - URINARY TRACT REASON FOR EXAM: Female, 64 years old. Lower abd pain, diarrhea RADIATION DOSAGE (If Supplied By Facility): CTDIvol = ( 15.57 ) mGy, DLP = ( 562.51 ) mGycm TECHNIQUE: IV 100mL Isovue-370 was administered. Transaxial images were obtained from the dome of the diaphragm to the symphysis pubis subsequent to intravenous contrast administration. Multiplanar coronal and sagittal images were reformatted. The protocol utilizes one or more of the following dose reduction techniques: automated exposure control, adjustment of mA and/or kV according to patient size,and/or use of iterative reconstruction technique. COMPARISON: CT of the lumbar spine dated March 13, 2013 FINDINGS: The visualized lung bases are unremarkable. The visualized portions of the heart are within normal limits. Normal liver. Normal gallbladder and extrahepatic biliary system. Normal spleen. Normal pancreas. Normal bilateral adrenal glands. Normal visualized stomach. Normal small intestine. There is circumferential wall thickening of the colon, most pronounced within the ascending and transverse colon. There is circumferential wall thickening of the rectum as well. The appendix is visualized and appears normal. There is diffuse atherosclerotic calcification of the abdominal aorta, without a demonstrated aneurysm. No retroperitoneal adenopathy. Normal right kidney. Normal left kidney. Normal urinary bladder. Normal abdominal wall. There are diffuse degenerative changes of the visualized lumbar spine. There is a grade 1 anterior spondylolisthesis of L3 on L4. CT/Abdomen/Pelvis W IV Cont ONLY IMPRESSION: Proctocolitis. Atherosclerosis. Electronically Signed: Renetta Hanson MD at 8:07 EST ,
--- NOTE | 2024-09-26 06:54 | ED.VIS.GI ---
HPI HPI - GI History of Present Illness Chief Complaint: Abd Pain Informant: patient and spouse/S.O. Narrative Narrative: 64-year-old female on day #3 of gradual onset lower abdominal pain with diarrhea. The symptoms wax and wane. When she has the pain it is intense cramping. Denies any fevers or chills, she has had some nausea but no vomiting. Prior no other abdominal surgeries in the past. No recent antibiotics no history of C. difficile. No travel out of the area recently. She denies any obvious etiology such as undercooked meats, raw fish, etc. No known sick contacts. [facility] Medical History (Updated 09/26/24 @ 08:[address] Neftali Rivera MD) Melanoma Hypertension Cataracts, bilateral Home Medications ?Medication ?Instructions ?Recorded ?Last Taken ?Type ciprofloxacin HCl 500 mg tablet 500 mg PO BID #6 TABLETS 09/26/24 Unknown Rx dicyclomine 10 mg capsule 20 mg (2 x 10 mg) PO Q6H PRN PRN 09/26/24 Unknown Rx abdominal discomfort #20 CAPSULES hydrochlorothiazide 25 mg tablet 25 mg PO DAILY 09/26/24 Unknown History ondansetron 8 mg disintegrating 8 mg PO Q8H PRN nausea and 09/26/24 Unknown Rx tablet vomiting #20 tabs Allergy/AdvReac Type Severity Reaction Status Date / Time No Known Allergies Allergy Verified 09/26/24 06:35 Family History Other CAD (coronary artery disease) Heart disease Hypertension Thyroid disorder Social History Smoking Status: Never smoker alcohol intake: never substance use type: does not use what type of physical activity do you participate in: walking and aerobics frequency: 3-4 times per week ROS ROS ED Constitutional Constitutional ED: Reports fatigue; Denies chills or fever(s) Eyes Eyes: Denies change in vision or diplopia ENT ENT ED: Denies rhinorrhea or sore throat Cardiovascular Cardiovascular: Denies chest pain or palpitations Respiratory/Chest Respiratory/Chest: Denies cough or dyspnea Gastrointestinal Gastrointestinal: Reports abdominal pain, diarrhea and other Details: Scant amount of blood only when wiping after diarrhea due to known hemorrhoid; no other hematochezia ; Denies melena, nausea or vomiting Genitourinary Genitourinary ED: Denies dysuria or hematuria Musculoskeletal Musculoskeletal: Denies back pain or neck pain Integumentary Denies abscess or rash Neurologic Neurologic: Denies headache(s), paresthesias or weakness Psychiatric Psychiatric: Denies anxiety or suicidal thoughts EXAM Physical Exam Const Vital Signs: 09/26/24 06:36 09/26/24 06:38 Temperature 97.6 F L 97.6 F L Temperature Source Oral Oral Pulse Rate 86 90 Respiratory Rate 18 18 Blood Pressure 131/90 H Blood Pressure Mean 103 Pulse Ox 98 100 Oxygen Delivery Method Room Air Room Air Positive well nourished and well developed General Appearance ED: well developed and NAD HEENT Reports moist mucous membranes normocephalic and atraumatic Eyes PERRL and EOMs intact bilaterally Neck full ROM and supple Resp normal respiratory effort and clear to auscultation bilaterally Cardio regular rate, regular rhythm and no murmurs GI non-distended GI Narrative: Tender throughout lower abdomen without guarding or rebound. No pulsatile mass. Also tender in epigastrium without a pulsatile mass palpable. Auscultation: normoactive bowel sounds Palpation: soft Back/Spine no CVA tenderness General Back: other FROM Extremity normal to inspection General Extremety ED: Negative for edema, pulses abnormal or tenderness General Extremity: Negative for edema or pulses abnormal Neuro oriented x3, CN's II-XII intact bilaterally and no sensory deficits noted Sensorium / Orientation: awake and alert Motor Exam: strength 5/5 throughout Skin no rashes or lesions noted and no wounds MDM MDM MDM Narrative Medical decision making narrative: Given the amount of pain the patient is having, I think a CT is warranted to evaluate for diverticulitis, colitis, infection. Labs show mild leukocytosis, liver enzymes are normal, mild hypokalemia, and CT images I reviewed as well as results which I agree with, showing proctocolitis no other acute abnormality. The etiology of the colitis is unknown at this time. Patient has no history of inflammatory bowel disease or other GI disorders, she is at relatively low risk for ischemic colitis and has been having no blood other than the small hemorrhoidal bleeding she believes, so I believe it is more likely to be infectious. Viral and bacterial etiologies are in the differential. The patient did not have a chance to have diarrhea while she was here and prefers to go home, feeling much better after IV fluids, Zofran, morphine, with a collection kit and provide a specimen to the lab at another date. I am going to give her a prescription for Cipro for 3 days to start after she provides a specimen and she will follow-up with her doctor and is good with all of that as is the . Lab Data Attestation: I reviewed the patient's lab results. Labs: Laboratory Results - last 24 hr 09/26/24 06:49 WBC 11.1 H RBC 4.57 Hgb 14.3 Hct 40.9 MCV 89.5 MCH 31.3 MCHC 35.0 RDW Std Deviation 39.1 RDW Coeff of Lisy 12.0 Plt Count 318 MPV 9.7 Immature Gran % (Auto) 0.400 Neut % (Auto) 76.4 H Lymph % (Auto) 15.2 L Blaine % (Auto) 7.0 Eos % (Auto) 0.5 Baso % (Auto) 0.5 Absolute Neuts (auto) 8.5 H Absolute Lymphs (auto) 1.69 Nucleated RBC % 0 Sodium 134 L Potassium 3.1 L Chloride 97 L Carbon Dioxide 30.0 Anion Gap 6 BUN 12 Creatinine 0.74 Estim Creat Clear Calc 74.81 Est GFR (MDRD) Af Amer 103 Est GFR (MDRD) Non-Af 85 BUN/Creatinine Ratio 16.3 Glucose 140 H Calcium 9.5 Total Bilirubin 0.60 AST 18 ALT 26 Alkaline Phosphatase 84 Total Protein 7.2 Albumin 3.9 Globulin 3.3 Albumin/Globulin Ratio 1.2 Lipase 20 Radiography Diagnostic Testing: Clinical Impression(s) from Imaging Studies Abdomen/Pelvis CT 09/26/24 06:51 IMPRESSION: Proctocolitis. Atherosclerosis. Electronically Signed: Renetta Hanson MD at 8:07 EST , Discharge Plan Triage Chief Complaint: Abd Pain ED Provider: Neftali Rivera Dx/Rx/DC Orders Clinical Impression: Proctocolitis, Acute diarrhea Instructions: ED Understanding Colitis, ED Diarrhea, Unknown Cause Prescriptions: New dicyclomine 10 mg capsule 20 mg PO Q6H PRN PRN (Reason: abdominal discomfort) Qty: 20 0RF ciprofloxacin HCl 500 mg tablet 500 mg PO BID Qty: 6 0RF ondansetron 8 mg tablet,disintegrating 8 mg PO Q8H PRN (Reason: nausea and vomiting) Qty: 20 0RF No Action hydrochlorothiazide 25 mg tablet 25 mg PO DAILY Primary Care Provider: Pepe Castillo Referrals: Pepe Castillo MD [Primary Care Provider] - 3-5 Days if not improving Print Language: Maltese Disposition Disposition: Home, Self Care
[2024-09-26] MEDS: 0.9% Normal Saline (1000mL) 1,000 ML 999 ML IV (07:05)
[2024-09-26] MEDS: Ondansetron 4 MG/2 ML Vial IV (07:06)
[2024-09-26] MEDS: Ketorolac 15 MG/ML Vial IV (07:06)
[2024-09-26] MEDS: Morphine 4 MG/ML Syringe IV (07:06)
[2024-09-26 07:09] LABS: Absolute Lymphocyte Count 1.69 X10^3/uL (0.83-4.51); Absolute Neutrophil Count 8.5 X10^3/uL (2.0-7.7); Basophil# 0.06 X10^3/uL; Basophil% 0.5 % (0-1); Eosinophil# 0.06 X10^3/uL; Eosinophils% 0.5 % (0-5); Hematocrit 40.9 % (37-47); Hemoglobin 14.3 g/dL (12.0-15.0); Lymphocyte # 1.69 X10^3/ul (0.83-4.51); Lymphocyte % 15.2 % (19-41); Mean Corpuscular Hgb 31.3 pg (27.0-32.0); Mean Corpuscular Volume 89.5 fL (81-99); Mean Platelet Vol. 9.7 fl (6.2-12.0); Monocyte# 0.78 X10^3/uL; NRBC Flagged by Analyzer 0 % (0-5); Neutrophil # 8.51 X10^3/uL (2.7-7.7); Neutrophil % 76.4 % (47-70); Platelet Count 318 K/mm3 (150-450); RBC Distribution Width SD 39.1 fl (35.1-43.9); Red Blood Count 4.57 M/mm3 (4.2-5.4); White Blood Count 11.1 K/mm3 (4.4-11.0)
[2024-09-26 07:28] LABS: ALB/GLOB Ratio 1.2 RATIO (0.9-2.4); AST(SGOT) 18 U/L (15-37); Alanine Aminotransfer ALT/SGPT 26 U/L (13-56); Albumin, Serum 3.9 g/dL (3.2-5.0); Alkaline Phosphatase 84 U/L (45-117); Anion Gap 6 (5-15); BUN 12 mg/dL (7-18); BUN/Creat Ratio 16.3 RATIO (10-20); Calcium,Total 9.5 mg/dL (8.5-10.1); Chloride 97 mmol/L (98-107); Creatinine, Serum 0.74 mg/dL (0.55-1.02); EST Glomerular Filtration Rate 85 mL/min (>60); Est Glom Filt Rate - Afr Amer 103 mL/min (>60); Estimated Creatinine Clearance 74.81 ml/min; Globulin 3.3 g/dL (2.2-4.2); Glucose 140 mg/dL (74-106); Lipase 20 U/L (13-75); Potassium 3.1 mmol/L (3.5-5.1); Protein, Total 7.2 g/dL (6.4-8.2); Sodium Level 134 mmol/L (136-145)
[2024-09-26 08:38] VITALS: BP 121/76; PULSE 89; RESP 16; TEMP 36.6; O2SAT 98
== END 2024-09-26 08:40 | disposition home or self-care (01) ==
PROVIDERS: Emergency Provider Emergency Medicine; PCP Family Medicine; Visit Provider Emergency Medicine
DX: R19.7 Diarrhea, unspecified (principal); R10.30 Lower abdominal pain, unspecified
CPT/HCPCS: 74177; 80053; 83630; 83690; 85025; 87506; 96374; 96375; 99283; J7030; Q9967; A4216; J2405

== ENCOUNTER → 2024-12-04 | Outpatient (CLI) | payer BC, SELFPAY ==
[2024-12-04 10:39] LABS: Absolute Lymphocyte Count 2.22 X10^3/uL (0.83-4.51); Absolute Neutrophil Count 2.1 X10^3/uL (2.0-7.7); Basophil# 0.06 X10^3/uL; Basophil% 1.2 % (0-1); Eosinophil# 0.23 X10^3/uL; Eosinophils% 4.6 % (0-5); Hematocrit 38.6 % (37-47); Hemoglobin 13.1 g/dL (12.0-15.0); Lymphocyte # 2.22 X10^3/ul (0.83-4.51); Lymphocyte % 44.3 % (19-41); Mean Corp Hgb Conc 33.9 g/dL (32-36); Mean Corpuscular Volume 91.3 fL (81-99); Mean Platelet Vol. 9.7 fl (6.2-12.0); Monocyte# 0.42 X10^3/uL; Monocyte% 8.4 % (0-10); NRBC Flagged by Analyzer 0 % (0-5); Neutrophil # 2.07 X10^3/uL (2.7-7.7); Neutrophil % 41.3 % (47-70); Platelet Count 377 K/mm3 (150-450); RBC Distribution Width CV 12.7 % (11.6-14.6); RBC Distribution Width SD 41.5 fl (35.1-43.9); Red Blood Count 4.23 M/mm3 (4.2-5.4)
[2024-12-04 11:48] LABS: AST(SGOT) 21 U/L (15-37); Alanine Aminotransfer ALT/SGPT 26 U/L (13-56); Albumin, Serum 3.6 g/dL (3.2-5.0); Alkaline Phosphatase 77 U/L (45-117); Anion Gap 5 (5-15); BUN 11 mg/dL (7-18); BUN/Creat Ratio 13.8 RATIO (10-20); Calcium,Total 9.4 mg/dL (8.5-10.1); Chloride 103 mmol/L (98-107); Cholesterol 190 mg/dL (200); EST Glomerular Filtration Rate 77 mL/min (>60); Est Glom Filt Rate - Afr Amer 94 mL/min (>60); Globulin 3.5 g/dL (2.2-4.2); Glucose 90 mg/dL (74-106); High Density Lipoprotein 56 mg/dL; Potassium 3.6 mmol/L (3.5-5.1); Protein, Total 7.1 g/dL (6.4-8.2); Sodium Level 139 mmol/L (136-145); Triglycerides 102 mg/dL; Very Low Density Lipoprotein 20 mg/dL (5-40)
== END | disposition home or self-care (01) ==
LOC: MTLAB 09:15
PROVIDERS: PCP Family Medicine; Referring Provider Family Medicine; Visit Provider Family Medicine
DX: I10 Essential (primary) hypertension (principal)
CPT/HCPCS: 36415; 80053; 80061; 84443; 85025